=== PATIENT | male | born 1950 | race Caucasian/White ===

== ENCOUNTER → 2018-12-02 | Outpatient (CLI) | payer MEDICARE ==
[~2018-12-02] MED LIST: CYCL10TA7 PO; DIAZ10TA4 PO; HYDR25TA PO; LISI-613 PO; LODINE XL PO; [UNRECOGNIZED DRUG - CODE] PO
== END | disposition home or self-care (01) ==
LOC: RAH 09:32
PROVIDERS: ATTEND Otolaryngology Plastic Surgery within the Head & Neck
DX: K22.2 Esophageal obstruction (principal); K21.9 Gastro-esophageal reflux disease without esophagitis; R13.10 Dysphagia, unspecified
CPT/HCPCS: 74220

== ENCOUNTER → 2018-12-22 | Outpatient (CLI) | payer MEDICARE ==
[2018-12-22 16:20] LABS: CREATININE 1.1 mg/dL (0.5-1.5)
== END | disposition home or self-care (01) ==
LOC: LAB 15:34
PROVIDERS: ATTEND Family Medicine
DX: G89.29 Other chronic pain (principal)
CPT/HCPCS: 36415; 82565; 84520

== ENCOUNTER → 2018-12-26 | Outpatient (CLI) | payer MEDICARE ==
[~2018-12-26] MED LIST changes: +GADODIAMIDE 10 MMOL/20 ML VIAL IV ONE
== END | disposition home or self-care (01) ==
LOC: RAH 01:40
PROVIDERS: ATTEND Family Medicine
DX: M48.061 Spinal stenosis, lumbar region without neurogenic claudication (principal)
CPT/HCPCS: 72158; A9579

== ENCOUNTER → 2019-01-11 | Outpatient (CLI) | payer MEDICARE ==
[~2019-01-11] MED LIST changes: -GADODIAMIDE 10 MMOL/20 ML VIAL IV ONE; +IOHEXOL-350 75 ML VIAL IV ONE
== END | disposition home or self-care (01) ==
LOC: RAH 14:20
PROVIDERS: ATTEND Family Medicine
DX: K80.20 Calculus of gallbladder without cholecystitis without obstruction (principal); R59.1 Generalized enlarged lymph nodes; I51.7 Cardiomegaly; M43.8X6 Other specified deforming dorsopathies, lumbar region
CPT/HCPCS: 71250; 72130; Q9967

== ENCOUNTER 2019-01-25 08:24 | Day surgery (SDC) | payer MEDICARE ==
[~2019-01-25] VITALS: Ht 172.7 cm; Wt 73.5 kg
[~2019-01-25 08:24] MED LIST changes: -IOHEXOL-350 75 ML VIAL IV ONE
[2019-01-25 09:17] VITALS: BP 173/71
[2019-01-25] MEDS ORDERED: SODIUM CHLORIDE 0.9% 1000ML 1,000 ML IV ONE (09:28)
[2019-01-25 09:29] LABS: BASOPHILS % (AUTO) 0.9 % (0.0-5.0); EOSINOPHILS % (AUTO) 1.1 % (0.0-8.0); LYMPHOCYTES % (AUTO) 14.1 % (21.0-51.0); MEAN CORPUSCULAR HGB CONC 34.7 g/dL (32.0-36.0); MEAN CORPUSCULAR VOLUME 89.3 fL (79-99); MONOCYTES % (AUTO) 10.3 % (3.0-13.0); NEUTROPHILS % (AUTO) 73.6 % (40.0-77.0); PLATELET COUNT (AUTO) 305 K/uL (130-400); RED BLOOD CELL COUNT(AUTO) 5.48 MIL/uL (4.50-6.20); WHITE BLOOD COUNT (AUTO) 10.6 K/uL (4.8-10.8)
[2019-01-25 09:39] LABS: CREATININE 0.9 mg/dL (0.5-1.5)
[2019-01-25 09:44] LABS: ALBUMIN 3.2 g/dL (3.5-5.0); BILIRUBIN,TOTAL 0.5 mg/dL (0.2-1.0); TOTAL PROTEIN, SERUM 8.2 g/dL (6.0-8.3)
[2019-01-25 10:03] LABS: INR 1.01 (0.85-1.15); PARTIAL THROMBOPLASTIN TIME 28.6 SEC (26.3-35.5); PROTHROMBIN TIME 10.6 SEC (9.6-11.6)
--- NOTE | 2019-01-25 10:36 | NUR ---
PROCEDURE Kalia CASTREJON RN HERE TO SPEAK TO PT IN REGARDS TO RADIOLOGISTS RECOMMENDATIONS TO RETURN BACK TO PCP TO HAVE A BRONCHOSCOPY ORDERED TO DUE LOCATION OF MASS IN LUNG. PT AND PTS VERBALIZED UNDERSTANDING. PT WILL CALL PCP, DR. SKINNER.
== END 2019-01-25 10:30 | disposition home or self-care (01) ==
LOC: DAH 08:24
PROVIDERS: ATTEND Family Medicine
DX: R91.8 Other nonspecific abnormal finding of lung field (principal); E11.9 Type 2 diabetes mellitus without complications; J44.9 Chronic obstructive pulmonary disease, unspecified; I10 Essential (primary) hypertension; F17.210 Nicotine dependence, cigarettes, uncomplicated; Z98.890 Other specified postprocedural states; Z53.8 Procedure and treatment not carried out for other reasons; Z79.01 Long term (current) use of anticoagulants
CPT/HCPCS: 36415; 80053; 85025; 85610; 85730; A4215; A4216; A4221; A4222; A4223 ×3; A4606; A4663; J7030